=== PATIENT | male | born 2005 | race Hispanic/Latino ===

== ENCOUNTER 2024-05-16 20:18 | Inpatient (IN) | payer OTHER ==
[2024-05-16] MEDS ORDERED: Morphine 4 MG/ML VIAL ONE (21:16)
[2024-05-16] MEDS ORDERED: Morphine 4 MG/ML VIAL SLOW IVP PRN (21:56)
[2024-05-16] MEDS ORDERED: Ondansetron PF 4 MG/2 ML Vial IVP PRN ×2 (22:00→23:36)
[2024-05-16] MEDS ORDERED: Ondansetron ODT 4 MG TAB SL PRN (22:00)
[2024-05-16] MEDS ORDERED: Sodium Chloride 0.9% 1,000 ML IV SCH (22:00)
[2024-05-16] MEDS ORDERED: Piperacillin/Tazobactam 3.375 GM in Sodium Chloride 0.9% 100 ML IVPB SCH (23:00)
[2024-05-16 23:10] VITALS: BMI 29.2
[2024-05-16] MEDS ORDERED: Glucagon 1 MG/ML KIT IM PRN (23:36)
[2024-05-16] MEDS ORDERED: Dextrose 50% Abboject 50 ML SYRINGE SLOW IVP PRN (23:36)
[2024-05-16] MEDS ORDERED: Promethazine HCl 25 MG/ML VIAL IM PRN (23:36)
[2024-05-16] MEDS ORDERED: Dextrose 5% in Water 1,000 ML IV PRN (23:36)
[2024-05-17] MEDS: Piperacillin/Tazobactam 3.375 GM in Sodium Chloride 0.9% 100 ML IVPB SCH (00:40)
[2024-05-17] MEDS: Lactated Ringer's 1,000 ML IV SCH (00:40)
[2024-05-17] MEDS: traMADol HCl 50 MG TAB PO SCH (00:46)
[2024-05-17] MEDS: Acetaminophen 325 MG TAB PO SCH (00:46)
[2024-05-17] MEDS: Morphine 2 MG/ML VIAL SLOW IVP PRN (03:03)
[2024-05-17 04:28] LABS: #Basophils 0.08 10x3/uL (0.0-0.2); %Basophils 0.6 % (0.0-1.0); %Eosinophils 0.6 % (0.0-10.0); %Lymphocytes 15.3 % (21.0-51.0); %Monocytes 11.1 % (0.0-10.0); %Neutrophils 71.1 % (42.0-75.0); Hematocrit 44.7 % (42.0-52.0); Hemoglobin 15.2 g/dL (14.0-18.0); Mean Corpuscular Hemoglobin 30.2 pg (27.0-31.0); Mean Corpuscular Volume 88.7 fL (78.0-98.0); Platelet Count 338 10x3/uL (130-400); RBC Distribution Width 13.2 % (11.5-14.5); Red Blood Cell (RBC) Count 5.04 mill/uL (4.70-6.10)
[2024-05-17 04:50] LABS: Anion Gap 17 mmol/L (10-20); BUN (Urea Nitrogen) 5 mg/dL (8.9-20.6); Calc. Creatinine Clearance 171 mL/min (70-130); Calcium 9.1 mg/dL (7.8-10.44); Carbon Dioxide 22 mmol/L (22-29); Chloride 103 mmol/L (98-107); Estimated GFR 126; Glucose 122 mg/dL (70-105); Potassium 3.4 mmol/L (3.5-5.1); Sodium 139 mmol/L (136-145)
[2024-05-17] MEDS: Famotidine 20 MG TAB PO SCH (08:39)
[2024-05-17] MEDS: TETANUS, DIPHTHERIA TOX,ADULT (TDVAX) 0.5 ML VIAL IM ONE (08:40)
[2024-05-17] MEDS ORDERED: PROPOFOL 20 ML ONE (11:32)
[2024-05-17] MEDS ORDERED: Rocuronium Bromide 10 MG/ML (10ML VIAL) ONE (11:32)
[2024-05-17] MEDS ORDERED: fentaNYL PF 100 MCG/2 ML SYRINGE ONE ×2 (11:32→14:31)
[2024-05-17] MEDS ORDERED: Midazolam HCl 2 mg/2 ml Vial ONE (11:32)
[2024-05-17] MEDS ORDERED: Lidocaine 1% PF 5 ML VIAL ONE (11:33)
[2024-05-17] MEDS ORDERED: Bupivacaine 0.25% HCL 30 ML VIAL ONE (11:49)
[2024-05-17] MEDS ORDERED: EPINEPHrine 1 MG/ML VIAL ONE (11:49)
[2024-05-17] MEDS ORDERED: fentaNYL 50 mcg/mL 1 mL Vial ONE ×3 (12:11→14:55)
[2024-05-17] MEDS ORDERED: Ketamine In 0.9 % NaCl 50 MG/5 ML SYRINGE ONE (13:17)
[2024-05-17] MEDS ORDERED: Rocuronium Bromide 50 MG/5 ML VIAL ONE (13:37)
[2024-05-17] MEDS ORDERED: Dexamethasone 20 MG/5 ML VIAL ONE (14:01)
[2024-05-17] MEDS ORDERED: Ondansetron PF 4 MG/2 ML Vial ONE (14:01)
[2024-05-17] MEDS ORDERED: SUGAMMADEX SODIUM 200 MG/2 ML VIAL ONE (14:02)
[2024-05-18 06:05] LABS: #Basophils 0.04 10x3/uL (0.0-0.2); #Eosinphils Less than 0.03 10x3/uL (0.0-0.7); %Basophils 0.3 % (0.0-1.0); %Lymphocytes 14.3 % (21.0-51.0); %Monocytes 9.2 % (0.0-10.0); Hematocrit 43.1 % (42.0-52.0); Hemoglobin 14.5 g/dL (14.0-18.0); Mean Corpuscular HGB CONC 33.6 g/dL (32.0-36.0); Mean Corpuscular Hemoglobin 30.1 pg (27.0-31.0); Mean Corpuscular Volume 89.4 fL (78.0-98.0); Mean Platelet Volume 8.6 fL (7.4-10.4); Platelet Count 325 10x3/uL (130-400); Red Blood Cell (RBC) Count 4.82 mill/uL (4.70-6.10)
[2024-05-18 06:22] LABS: ALT (SGPT) 291 U/L (8-55); AST (SGOT) 154 U/L (5-34); Albumin 3.4 g/dL (3.5-5.0); Alkaline Phosphatase 122 U/L (40-110); Anion Gap 15 mmol/L (10-20); BUN (Urea Nitrogen) 6 mg/dL (8.9-20.6); Bilirubin, Total 0.8 mg/dL (0.2-1.2); Calc. Creatinine Clearance 188 mL/min (70-130); Calcium 9.1 mg/dL (7.8-10.44); Carbon Dioxide 21 mmol/L (22-29); Chloride 104 mmol/L (98-107); Estimated GFR 130; Globulin 3.6 g/dL (2.4-3.5); Glucose 97 mg/dL (70-105); Potassium 3.6 mmol/L (3.5-5.1); Sodium 136 mmol/L (136-145)
[2024-05-18] MEDS: traMADol HCl 50 MG TAB PO PRN (19:50)
[2024-05-19 05:42] LABS: %Basophils 1.2 % (0.0-1.0); %Eosinophils 1.7 % (0.0-10.0); %Lymphocytes 36.3 % (21.0-51.0); %Monocytes 10.1 % (0.0-10.0); %Neutrophils 47.3 % (42.0-75.0); Hematocrit 42.9 % (42.0-52.0); Hemoglobin 14.2 g/dL (14.0-18.0); Mean Corpuscular HGB CONC 33.1 g/dL (32.0-36.0); Mean Corpuscular Hemoglobin 30.2 pg (27.0-31.0); Mean Corpuscular Volume 91.3 fL (78.0-98.0); Mean Platelet Volume 8.6 fL (7.4-10.4); Platelet Count 325 10x3/uL (130-400); RBC Distribution Width 13.2 % (11.5-14.5)
[2024-05-19 05:59] LABS: ALT (SGPT) 391 U/L (8-55); AST (SGOT) 287 U/L (5-34); Albumin 3.1 g/dL (3.5-5.0); Alkaline Phosphatase 116 U/L (40-110); Anion Gap 15 mmol/L (10-20); BUN (Urea Nitrogen) 8 mg/dL (8.9-20.6); Bilirubin, Total 0.5 mg/dL (0.2-1.2); Calc. Creatinine Clearance 167 mL/min (70-130); Calcium 8.6 mg/dL (7.8-10.44); Carbon Dioxide 24 mmol/L (22-29); Chloride 105 mmol/L (98-107); Estimated GFR 125; Globulin 3.2 g/dL (2.4-3.5); Glucose 84 mg/dL (70-105); Potassium 3.5 mmol/L (3.5-5.1); Protein, Total 6.3 g/dL (6.0-8.3); Sodium 140 mmol/L (136-145)
[2024-05-19] MEDS: LevoFLOXacin 500 MG TAB PO SCH (08:36)
[2024-05-19 11:50] VITALS: BP 117/70; TEMP 98.3
[2024-05-20] MEDS ORDERED: LevoFLOXacin 500 MG TAB PO SCH (06:00)
== END 2024-05-19 15:03 | disposition home or self-care (01) | DRG 419 ==
LOC: ERS 20:18 → ERHOLD 21:49 → SJJU 22:44 → OBSVTOIN 05-18 14:03
PROVIDERS: ADMIT Surgery; ATTEND Surgery
PROC: 0FT44ZZ Resection of Gallbladder, Percutaneous Endoscopic Approach (ICD-10-PCS; principal; 2024-05-17)
DX: K80.00 Calculus of gallbladder with acute cholecystitis without obstruction (principal); E66.9 Obesity, unspecified; Z68.29 Body mass index [BMI] 29.0-29.9, adult
CPT/HCPCS: 36415; 36416; 76705; 80048; 80053; 83690; 85025; 88304; 96374; C1713; J0171; J0665; J1100; J2250; J2270; J2272; J2405; J2543; J2704; J3010; J3490; J7120